=== PATIENT | female | born 1970 | race American Indian/Alaskan Native ===

== ENCOUNTER 2018-12-02 09:18 | Outpatient (CLI) | payer OTHER | END 2018-12-02 09:19 | disposition home or self-care (01) | LOC: LABHHL 09:18 | PROVIDERS: ATTEND Surgery | DX: N60.91 Unspecified benign mammary dysplasia of right breast (principal) | CPT/HCPCS: 88305; 88341; 88342 ==

== ENCOUNTER 2018-12-20 12:48 | Outpatient (CLI) | payer OTHER ==
--- NOTE | 2018-12-21 12:17 | Magnetic Resonance Report ---
BILATERAL BREAST MR WITHOUT AND WITH GADOLINIUM INDICATION: History of an abnormal right mammogram and status post ultrasound-guided needle biopsy o f the right breast at 6:00 8 cm from the nipple on 05/26/2017. Pathology was consistent with benign b reast tissue with mild fibrocystic changes. She also had a vacuum-assisted biopsy of a right breast l esion at 10:00 4 cm from the nipple on 08/11/2012.Pathology was consistent with PASH COMPARISONS: None. TECHNIQUE: Axial 1.0 mm T1 without, axial high-resolution 2.0 mm T2 and axial 1.0 mm dynamic vibrant high-resolution postcontrast T1 fat saturation sequences on a 1.5 Rosie magnet. Examination was perfo rmed with an 8-channel dedicated [place] breast coil. Postprocessing with CAD and subtraction was performed on an [employer] workstation. 19.0 cc of MultiHance was injected without incident for the contr ast portion of the exam. Consent was obtained prior to the administration of the contrast. FINDINGS: RIGHT BREAST: Moderate background parenchymal enhancement. No mass or suspicious enhancement. A biops y clip is identified at 6:00 approximately 8 cm from the nipple and there is no mass or suspicious en hancement at the clip. No suspicious lymph nodes. LEFT BREAST: Moderate background parenchymal enhancement. No mass or suspicious enhancement. No suspi cious lymph nodes. IMPRESSION: Negative bilateral breast MRI. FINAL ASSESSMENT: 1. Normal breast MRI. BI-RADS category 1. In a patient with an increased lifetime risk of breast cancer, yearly screening MRI examinations alte rnating with yearly screening mammograms are recommended such that the patient is imaged every 6 to hs.>> Signer Name: Saran Ye MD Signed: 12/21/2018 12:13 PM Workstation Name: [id number]
== END 2018-12-20 12:49 | disposition home or self-care (01) ==
LOC: SPVIMAG 12:48
PROVIDERS: ATTEND Surgery
DX: R92.2 Inconclusive mammogram (principal)
CPT/HCPCS: A9577; C8908; 77049

== ENCOUNTER 2021-08-24 12:03 | Observation (INO) | payer OTHER ==
[2021-08-24] MEDS ORDERED: DOCUSATE SODIUM 100 MG CAP PO PRN (12:11)
[2021-08-24] MEDS ORDERED: ACETAMINOPHEN 325 MG TAB PO PRN (12:11)
[2021-08-24] MEDS ORDERED: ALUM-MAG HYDROXIDE-SIMETHICONE 200-200-20MG/5ML ORAL LIQD 30 ML PO PRN (12:16)
[2021-08-24] MEDS ORDERED: MAGNESIUM HYDROXIDE (MOM) ORAL LIQD UDC PO PRN (12:16)
[2021-08-24] MEDS ORDERED: guaiFENesin DM 200/20 MG ORAL LIQD 10 ML PO PRN (12:16)
[2021-08-24] MEDS ORDERED: SODIUM CHLORIDE 0.9% 500 ML 500 ML IV ONE ×2 (12:16→23:28)
[2021-08-24] MEDS ORDERED: SODIUM CHLORIDE NASAL SPRAY 44ML NS PRN (12:16)
[2021-08-24] MEDS ORDERED: WITCH HAZEL/ GLYCERIN PAD TP PRN (12:16)
[2021-08-24] MEDS ORDERED: SENNOSIDES/DOCUSATE SODIUM 8.6/50 MG TAB PO PRN (12:16)
[2021-08-24] MEDS ORDERED: PSEUDOEPHEDRINE 30 MG TAB PO PRN (12:16)
[2021-08-24] MEDS ORDERED: ONDANSETRON 4 MG/2 ML INJ IV PRN (12:16)
[2021-08-24] MEDS ORDERED: SIMETHICONE 80 MG CHEW TAB PO PRN (12:16)
[2021-08-24] MEDS ORDERED: diphenhydrAMINE 25 MG CAP PO PRN (12:16)
--- NOTE | 2021-08-24 12:51 | History and Physical Report ---
History of Present Illness Date of examination: 08/24/21 Chief complaint: Severe anemia, menorrhagia History of present illness: Thisis a 51 year-old female with a longstanding history of anemia, menorrhagia and uterine fibroids. She has and EMB 2017 that revealed revealed mild atypia. Hysteroscopy D&C was recommended but she declined. She had another EMB 2018 that revealed ? endometrial polyps and declined resection at that time. She presented to the office 08/22/21 for her annual gynecologic evaluation. She had a CBC hat resulted today with h/h 4.417.7 and plts 1050k. She denies bleeding today and agrees with admission for PRBC transfusion. Menstrual History: LMP (date): 08/09/2021 Past History : 3 Spont. Ab: 2 Ectopics: 1 # 1 Delivery type: ectopic Comments: methotrexate # 2 Delivery type: SAB Comments: Cytotec # 3 Delivery type: SAB Comments: D&C [facility] History Operations: Gastric Bypass: sleeve 2010 [facility] Abdominoplasty D&C: Abnormal PAP: positive Infection History HIV Risk Eval: no Hx of STD: gonorrhea Other: PID,HCV Active Medications (reviewed today): Lysteda 650 mg tablet (tranexamic acid) Take 2 tablet by mouth three times a day as needed only take on heaviest days of menses/periods up to 5 days a month Current Allergies (reviewed today): PENICILLIN (Moderate) Past Medical History: pelvic fracture 2016 [facility] Pyloric Anemia Past Surgical History: Gastric Bypass: sleeve 2010 [facility] Abdominoplasty D&C: Family History Summary: Other family member - Has No Family History of Uterine Cancer - Entered On: 07/19/2017 Other family member - Has No Family History of Stomach Cancer - Entered On: 07/19/2017 Other family member - Has No Family History of Small Bowel Cancer - Entered On: 07/19/2017 Other family member - Has No Family History of Pancreatic Cancer - Entered On: 07/19/2017 Other family member - Has No Family History of Kidney/Urinary Tract Cancer - Entered On: 07/19/2017 Other family member - Has No Family History of DVT/PE on OCP - Entered On: 07/19/2017 Other family member - Has No Family History of Colon Cancer - Entered On: 07/19/2017 Other family member - Has No Family History of Breast Cancer - Entered On: 07/19/2017 Other family member - Has No Family History of Brain Cancer - Entered On: 07/19/2017 Other family member - Has No Family History of Biliary Tract Cancer - Entered On: 07/19/2017 MGM - Has Family History of Ovarian Cancer - menopause, 50's, - Entered On: 06/21/2017 Mother (biol.) - Has Family History of Ovarian Cancer - diagnosed 30's - Entered On: 06/21/2017 Mother (biol.) - Has Family History Breast Cancer - menopause, with recurrence - Entered On: 06/21/2017 Social History: Patient is single Risk Factors: Smoked Tobacco Use: Former smoker Cigarettes: Yes Year quit: 2008 Years Since Last Quit: 14 Drug use: no Alcohol use: yes Drinks per day: social Exercise: yes PAP Smear History: Date of Last PAP Smear: 05/04/2017 Medications Added to Medication List This Visit: 1) Lysteda 650 Mg Tablet (Tranexamic acid) .... Take 2 tablet by mouth three times a day as needed only take on heaviest days of menses/periods up to 5 days a month ] ] Medications and Allergies Allergies Allergy/AdvReac Type Severity Reaction Status Date / Time Penicillins AdvReac Unknown Hives Unverified 05/03/16 20:29 Home Medications Medication Instructions Recorded Confirmed Last Taken Type oxyCODONE /ACETAMINOPHEN [Percocet 1 tab PO Q6H PRN #30 tablet 05/05/16 Unknown Rx 5/325 mg] Cyclobenzaprine HCl [Flexeril 5 MG 5 mg PO TID PRN #30 tab 05/06/16 Unknown Rx TAB] Active Meds: Active Medications Acetaminophen (Acetaminophen 325 Mg Tab) 1,000 mg PO Q6H PRN PRN Reason: Pain MILD(1-3)/Fever >100.5/DELGADO Al Hydrox/Mg Hydrox/Simethicone (Alum-Mag Hydroxide-Simethicone [id number]/5ml Oral Liqd 30 Ml) 30 ml PO Q6H PRN PRN Reason: Indigestion Diphenhydramine HCl (Diphenhydramine 25 Mg Cap) 25 mg PO Q6H PRN PRN Reason: Itching Docusate Sodium (Docusate Sodium 100 Mg Cap) 100 mg PO Q12H PRN PRN Reason: Constipation Ferrous Sulfate (Ferrous Sulfate 325 Mg Tab) 325 mg PO TID TANA Guaifenesin (Guaifenesin Dm 200/20 Mg Oral Liqd 10 Ml) 10 ml PO Q6H PRN PRN Reason: Cough Magnesium Hydroxide (Magnesium Hydroxide (Mom) Oral Liqd Udc) 30 ml PO QHS PRN PRN Reason: Laxative Effect Ondansetron HCl (Ondansetron 4 Mg/2 Ml Inj) 4 mg IV Q6H PRN PRN Reason: Nausea And Vomiting Pseudoephedrine HCl (Pseudoephedrine 30 Mg Tab) 30 mg PO Q4H PRN PRN Reason: Nasal Congestion Senna/Docusate Sodium (Sennosides/Docusate Sodium 8.6/50 Mg Tab) 2 tab PO Q12H PRN PRN Reason: Laxative Effect Simethicone (Simethicone 80 Mg Chew Tab) 80 mg PO Q6H PRN PRN Reason: Gas pain Sodium Chloride (Sodium Chloride Nasal [place] 44ml) 2 spray NS Q4H PRN PRN Reason: Congestion Witch Kerrie/Glycerin (Witch Kerrie/ Glycerin Pad) 1 each TP PRN PRN PRN Reason: Hemorrhoids Assessment and Plan - Patient Problems (1) Anemia Status: Chronic Qualifiers: Iron deficiency anemia type: chronic blood loss Plan to address problem: Admit for PRBC transfusion. (2) Menorrhagia Status: Chronic (3) Fibroids Status: Chronic
[2021-08-24] MEDS: FERROUS SULFATE 325 MG TAB PO SCH (16:17)
[2021-08-24 16:24] LABS: Mean Corpuscular HGB Conc 28 % (30-34); Platelet Count 977 K/mm3 (140-440); Red Blood Count 2.66 M/mm3 (3.65-5.03)
[2021-08-24 16:28] LABS: Hematocrit 16.1 % (30.3-42.9); Hemoglobin 4.4 gm/dl (10.1-14.3)
[2021-08-24 16:29] LABS: Mean Corpuscular Volume 60 fl (79-97); Red Cell Distribution Width 37.6 % (13.2-15.2)
[2021-08-24] MEDS ORDERED: SODIUM CHLORIDE 0.9% 500 ML 500 ML IV SCH (17:00)
[2021-08-24 17:46] LABS: Anisocytosis 3+; Eosinophils % (Manual) 0 % (0.0-4.3); Hypochromasia 3+; Total Cells Counted 100
[2021-08-24 17:47] LABS: Platelet Estimate Consistent w Auto
[2021-08-24 23:25] LABS: Hematocrit 18.1 % (30.3-42.9); Hemoglobin 5.2 gm/dl (10.1-14.3)
[2021-08-25 04:36] LABS: Hematocrit 20.9 % (30.3-42.9); Hemoglobin 6.3 gm/dl (10.1-14.3)
[2021-08-25] MEDS ORDERED: SODIUM CHLORIDE 0.9% 500 ML 500 ML IV ONE (06:25)
[2021-08-25] MEDS: FERROUS SULFATE 325 MG TAB PO SCH (10:22)
--- NOTE | 2021-08-25 13:07 | Progress Note ---
Assessment and Plan - Patient Problems (1) Anemia Current Visit: No Status: Chronic Qualifiers: Iron deficiency anemia type: chronic blood loss Plan to address problem: S/P 3 UNITS OF PRBC. DOES NOT HAVE SX AT THIS TIME. WILL FOLLOW PENDING H/H RTO FOR SIS/EMBX AND THEN PLAN OF CARE DEVELOPED FOR MENORRHAGIA (2) Fibroids Current Visit: No Status: Chronic (3) Menorrhagia Current Visit: No Status: Chronic Qualifiers: Menorrhagia type: with regular cycle Qualified Code(s): N92.0 - Excessive and frequent menstruation with regular cycle Plan to address problem: SEE ABOVE Subjective - Subjective Date of service: 08/25/21 Principal diagnosis: HD #2 S/P 3 UNITS PRBC FOR SYMPTOMATICE ANEMIA 2)MENORRHAGIA Interval history: PT STATES SHE IS FEELING MUCH BETTER. SHE DENIES ANY SOB, CHEST PAIN OR DIZZINESS. 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 I D/W THAT WE WILL GET THE RESULTS OF HER NEXT H/H AND IF HGB>7 WE WILL PLAN FOR D/C HOME WITH SCHEDULED F/U IN THE OFFICE ON Wed08/27/21 FOR SIS/EMBX. PT EXPRESSED UNDERSTANDING AND AGREES WITH PLAN OF CARE. Patient reports: appetite normal, voiding normally, pain well controlled, no dizzy ambulation Objective - Vital Signs Latest vital signs: Vital Signs Temp Pulse Resp BP BP Pulse Ox 08/25/21 11:22 98.1 F 76 18 122/65 08/25/21 08:00 98 08/25/21 07:32 98.6 F 72 18 129/68 100 08/25/21 02:31 98.0 F 74 18 101/54 99 08/25/21 02:23 97.3 F L 72 18 111/52 99 08/25/21 01:53 98.2 F 77 18 98/53 100 08/25/21 01:23 98.1 F 77 18 94/51 99 08/25/21 00:53 98.3 F 82 18 104/63 100 08/25/21 00:23 98.0 F 87 18 119/58 100 08/25/21 00:14 98.7 F 78 18 117/62 99 08/25/21 00:08 98.2 F 78 18 113/59 99 08/24/21 19:51 98.6 F 74 18 112/67 100 08/24/21 19:45 100 08/24/21 19:38 98.3 F 69 18 110/63 100 08/24/21 19:08 98.7 F 81 16 117/65 100 08/24/21 18:38 98.2 F 76 18 114/64 100 08/24/21 18:08 98.2 F 80 16 107/57 100 08/24/21 18:01 98.2 F 79 16 108/51 100 08/24/21 17:45 98.0 F 75 16 102/52 100 08/24/21 17:30 98 F 90 19 99/52 97 08/24/21 15:45 97.9 F 71 18 119/57 08/24/21 15:31 100 08/24/21 14:00 98.4 F 69 19 123/71 99 Intake and Output 08/24/21 08/25/21 08/25/21 22:59 06:59 14:59 Intake Total 490 370 360 Balance 490 370 360 Intake: Oral 120 120 Intake, Free Water 120 120 240 Blood Product 250 250 0 Leukoreduced Rbc Part 2 250 Unit [id number] Leukoreduced Rbc Part 2 0 Unit [id number] Leukoreduced Red Blood 250 Cells Unit [id number] Other: Total, Intake Amount 120 120 Voiding Method Toilet # Voids Void 1 1 1 Weight 81.647 kg - Exam Lungs: Present: Clear to auscultation, Normal air movement Abdomen: Present: normal appearance, soft. Absent: distention, tenderness, guarding Extremities: Present: normal. Absent: tenderness, edema - Labs Labs: Abnormal lab results 08/24/21 08/24/21 08/24/21 Range/Units 15:30 15:33 21:30 RBC 2.66 L (3.65-5.03) M/mm3 Hgb 4.4 L* 5.2 L* (10.1-14.3) gm/dl Hct 16.1 L* 18.1 L* (30.3-42.9) % MCV 60 L (79-97) fl MCH 17 L (28-32) pg MCHC 28 L (30-34) % RDW 37.6 H (13.2-15.2) % Plt Count 977 H (140-440) K/mm3 Monocytes % (Manual) 12.0 H (0.0-7.3) % Basophils % (Manual) 4.0 H (0.0-1.8) % Monocytes # (Manual) 1.0 H (0.0-0.8) K/mm3 Basophils # (Manual) 0.3 H (0.0-0.1) K/mm3 Crossmatch See Detail 08/25/21 Range/Units 04:12 RBC (3.65-5.03) M/mm3 Hgb 6.3 L (10.1-14.3) gm/dl Hct 20.9 L (30.3-42.9) % MCV (79-97) fl MCH (28-32) pg MCHC (30-34) % RDW (13.2-15.2) % Plt Count (140-440) K/mm3 Monocytes % (Manual) (0.0-7.3) % Basophils % (Manual) (0.0-1.8) % Monocytes # (Manual) (0.0-0.8) K/mm3 Basophils # (Manual) (0.0-0.1) K/mm3 Crossmatch
--- NOTE | 2021-08-25 16:33 | Discharge Summary ---
Providers - Providers Date of Admission: 08/24/21 13:14 Date of discharge: 08/25/21 Attending physician: ANASTACIO TIRADO Primary care physician: RASHAWN MARCELINO Hospitalization Reason for admission: other (anemia) Procedure: other (transfusion of 3 units prbc) Hospital course: Pt called in for admission due to labs in office being abnormal. She has gotten 3 untis of prbc and if hgb is 7 or greater will plan for d/c home with po iron intake and she has f/u apt in the office in 2 days to discuss planning for treatment of this perimenopausal menorrhagia due to fibroids. She expressed understanding of the plan of care and states she is feeling better. She only had fatigue on admission and this has resolved. Anemia precautions given. Condition at discharge: Good Disposition: 01 HOME / SELF CARE / HOMELESS - Discharge Diagnoses (1) Anemia Status: Chronic Qualifiers: Iron deficiency anemia type: chronic blood loss (2) Fibroids Status: Chronic (3) Menorrhagia Status: Chronic Qualifiers: Menorrhagia type: with regular cycle Qualified Code(s): N92.0 - Excessive and frequent menstruation with regular cycle Plan - Provider Discharge Summary Diet: routine Instructions: routine Additional instructions: [] Smoking cessation referral if applicable(refer to patient education folder for contact #) [] Refer to [facility]'s [facility] Booklet Call your doctor immediately for: * Fever > 100.5 * Heavy vaginal bleeding ( >1 pad per hour) * Severe persistent headache * Shortness of breath * Reddened, hot, painful area to leg or breast * Drainage or odor from incision. * Keep incision clean and dry at all times and follow doctor's instructions regarding bathing/showering - Follow up plan Follow up: RASHAWN MARCELINO [Primary Care Provider] - 7 Days ALYSSA FARAH MD [Staff Physician] - 3 Days
[2021-08-25 16:40] LABS: Hemoglobin 7.2 gm/dl (10.1-14.3)
[2021-08-25 16:41] LABS: Hematocrit 24.8 % (30.3-42.9)
[2021-08-25 16:45] VITALS: BP 120/64
== END 2021-08-25 17:30 | disposition home or self-care (01) ==
LOC: UNDOADMOB 12:03 → 3A 12:03 → OB 13:14
PROVIDERS: ADMIT Obstetrics & Gynecology; ATTEND Obstetrics & Gynecology
DX: D64.9 Anemia, unspecified (principal); Z20.822 Contact with and (suspected) exposure to COVID-19; N92.0 Excessive and frequent menstruation with regular cycle; D25.9 Leiomyoma of uterus, unspecified; K21.9 Gastro-esophageal reflux disease without esophagitis; Z98.84 Bariatric surgery status; Z79.899 Other long term (current) drug therapy; Z98.890 Other specified postprocedural states
CPT/HCPCS: 36415; 36430; 85014; 85018; 85025; 86850; 86900; 86901; 86920; 96374; G0378; G0379; J2405; P9016; U0003; 85007